=== PATIENT | male | born 1960 | race African-American/Black ===

== ENCOUNTER 2017-09-12 02:17 | Emergency (ER) | payer SELFPAY ==
[~2017-09-12] VITALS: Ht 177.8 cm; Wt 72.0 kg
[2017-09-12] MEDS ORDERED: MORPHINE SULFATE 2 MG/ML CPJ (NOT FOR IM USE) IV STA (02:26)
[2017-09-12] MEDS ORDERED: SODIUM CHLORIDE 0.9% 1,000 ML IV ONE (02:26)
[2017-09-12] MEDS ORDERED: FLUORESCEIN SODIUM 1MG/STRIP OP ONE (02:30)
[2017-09-12] MEDS ORDERED: TETRACAINE 0.5% OPHTH DROPS 4ML OP ONE (02:30)
[2017-09-12] MEDS ORDERED: GENTAMICIN 0.3% OPTH OINT 3.5GM OP ONE (02:30)
[2017-09-12 05:03] LABS: BASOPHILS % 0.5 % (0.0-2.0); EOSINOPHILS % 0.3 % (0.0-5.0); HEMATOCRIT. 40.6 % (42.0-52.0); HEMOGLOBIN. 13.5 g/dL (14.0-18.0); LYMPHOCYTES % 8.7 % (20.0-50.0); MEAN CORPUSCULAR HEMOGLOBIN 31.1 pg (28.0-32.0); MEAN CORPUSCULAR VOLUME 93.3 fL (80.0-94.0); MEAN PLATELET VOLUME 8.1 fl (7.4-10.4); MONOCYTES % 5.9 % (2.0-8.0); NEUTROPHILS % 84.6 % (40.0-76.0); PLATELET 217 x1000/uL (130-400); RED BLOOD CELL COUNT 4.35 mill/uL (4.7-6.1); RED CELL DISTRIBUTION WIDTH 13.8 % (11.6-14.6)
[2017-09-12 05:07] LABS: CHLORIDE 104 mEq/L (98-107)
[2017-09-12 05:14] LABS: INR 1.1; PROTHROMBIN TIME 11.8 sec (9.4-11.6)
[2017-09-12 05:17] LABS: ETHANOL BLOOD < 10 mg/dL
[2017-09-12 05:48] VITALS: BP 122/82
== END 2017-09-12 05:49 | disposition home or self-care (01) ==
LOC: ER 02:19
DX: S05.8X2A Other injuries of left eye and orbit, initial encounter (principal); S01.81XA Laceration without foreign body of other part of head, initial encounter; X95.02XA Assault by paintball gun discharge, initial encounter; Y93.89 Activity, other specified; Y92.89 Other specified places as the place of occurrence of the external cause
CPT/HCPCS: 12011; 36415; 70450; 70486; 80053; 85025; 85610; 96374; 99285; G0482; J2270; J7030

== ENCOUNTER 2018-05-29 00:29 | Emergency (ER) | payer MEDICAID, OTHER ==
[~2018-05-29] VITALS: Ht 185.4 cm; Wt 73.0 kg
[2018-05-29] MEDS ORDERED: GUAIFENESIN-DM 200MG-20MG/10ML UDC PO ONE (03:15)
[2018-05-29 05:24] VITALS: BP 121/73
== END 2018-05-29 05:41 | disposition home or self-care (01) ==
LOC: ER 00:29
DX: J40 Bronchitis, not specified as acute or chronic (principal); F17.210 Nicotine dependence, cigarettes, uncomplicated
CPT/HCPCS: 71045; 99283

== ENCOUNTER 2018-11-23 06:06 | Emergency (ER) | payer OTHER ==
[~2018-11-23] VITALS: Ht 175.3 cm; Wt 77.0 kg
[2018-11-23] MEDS ORDERED: SODIUM CHLORIDE 0.9% 1,000 ML IV ONE (06:28)
[2018-11-23] MEDS ORDERED: MORPHINE SULFATE 4 MG/ML CPJ (NOT FOR IM USE) IV STA ×2 (06:28→10:23)
[2018-11-23] MEDS ORDERED: ONDANSETRON HCL 4MG/2ML INJ IV STA ×2 (06:28→10:23)
[2018-11-23 08:42] LABS: CLARITY URINE CLEAR (CLEAR); COLOR URINE YELLOW (YELLOW); KETONES URINE TRACE (NEGATIVE); LEUKOCYTE ESTERASE URINE NEGATIVE (NEGATIVE); NITRITE URINE NEGATIVE (NEGATIVE); OCCULT BLOOD URINE 3+ (NEGATIVE); PROTEIN URINE NEGATIVE (NEGATIVE); SPECIFIC GRAVITY URINE 1.021 (1.005-1.030); UROBILINOGEN URINE 0.2 E.U./dL (0.2-1.0)
[2018-11-23 08:43] LABS: HEMATOCRIT. 40.7 % (42.0-52.0); HEMOGLOBIN. 13.5 g/dL (14.0-18.0); MEAN CORPUSCULAR HEMOGLOBIN 31.5 pg (28.0-32.0); MEAN CORPUSCULAR VOLUME 94.8 fL (80.0-94.0); MEAN PLATELET VOLUME 7.7 fl (7.4-10.4); PLATELET 206 x1000/uL (130-400); RED BLOOD CELL COUNT 4.29 mill/uL (4.7-6.1); RED CELL DISTRIBUTION WIDTH 14.4 % (11.6-14.6)
[2018-11-23 08:47] LABS: CHLORIDE 110 mEq/L (98-107)
[2018-11-23 09:38] LABS: PLATELET ESTIMATE NORMAL
[2018-11-23] MEDS ORDERED: IOHEXOL-300 100 ML BOTTLE ONE (10:15)
[2018-11-23 12:25] VITALS: BP 110/74
== END 2018-11-23 13:03 | disposition short-term general hospital (02) ==
LOC: ER 06:06
DX: R10.9 Unspecified abdominal pain (principal); R31.9 Hematuria, unspecified; N20.0 Calculus of kidney; K85.90 Acute pancreatitis without necrosis or infection, unspecified; R11.10 Vomiting, unspecified; Z87.01 Personal history of pneumonia (recurrent)
CPT/HCPCS: 36415; 71045; 74177; 80053; 81003; 83690; 85025; 93005; 96361; 96374; 96375; 96376; 99285; J2270; J2405; J7030; Q9967